=== PATIENT | female | born 1990 | race Caucasian/White ===

== ENCOUNTER 2017-02-22 01:00 | Emergency (ER) | payer SELFPAY ==
[~2017-02-22] VITALS: Ht 157.5 cm; Wt 125.6 kg
[~2017-02-22 01:00] MED LIST: ALBU90OI6; ASPI325 PO; ASPI81CH PO; ASPI81EC PO; Aspir-Low81 MG PO; CEPH500 PO; CIPR500 PO; CIPRO500 MG PO; CLOBETTC TP; Cipro500 MG PO; DIAZ5 PO; DIPATR PO; FERR325; HYDACE10B PO; HYDACE5 PO; HYDACE5325 PO; IBUP800 PO; IRON 100 PLUS1 EACH PO; IRON18 MG PO; LEVFLO500 PO; METF500 PO; Naprosyn500 MG PO; Norco 5-325 Ta1 EACH PO; PHENA200 PO; PROC5 PO; PRODEXEL PO; PROM25 PO; Percocet 5-3251 EACH PO; Prednisone20 MG PO; Ultram50 MG PO; Zofran Odt4 MG SL; Zofran4 MG PO; [UNRECOGNIZED DRUG - REMARK]
[2017-02-22 01:36] LABS: BASOPHILS ABSOLUTE AUTO 0.02 K/mm3 (0.00-0.23); BASOPHILS PERCENT AUTO 0 % (0-2); EOSINOPHILS ABSOLUTE AUTO 0.08 K/mm3 (0.00-0.68); EOSINOPHILS PERCENT AUTO 1 % (0-6); Hematocrit 33.6 % (33.0-51.0); Hemoglobin 9.4 g/dL (11.5-16.0); IMMATURE GRAN ABSOLUTE AUTO 0.04 K/mm3 (0.00-0.10); IMMATURE GRAN PERCENT AUTO 0 % (0-1); LYMPHOCYTES ABSOLUTE AUTO 1.13 K/mm3 (0.84-5.20); LYMPHOCYTES PERCENT AUTO 13 % (21-46); MONOCYTES ABSOLUTE AUTO 0.51 K/mm3 (0.16-1.47); MONOCYTES PERCENT AUTO 6 % (4-13); Mean Corpuscular HGB 19.1 pg (26.0-34.0); Mean Corpuscular Volume 68 fL (80-100); Mean Platelet Volume 9.4 fL (9.1-12.4); NEUTROPHILS ABSOLUTE AUTO 7.14 K/mm3 (1.96-9.15); NEUTROPHILS PERCENT AUTO 80 % (41-73); Platelet Count 297 K/mm3 (150-400); RDW Coefficient Variation 17.2 % (11.7-14.2); Red Blood Cell Count 4.92 M/mm3 (3.80-5.20); White Blood Cell Count 8.92 K/mm3 (4.00-11.30)
[2017-02-22 01:52] LABS: Alanine Aminotransfer (ALT/SGP 27 U/L (12-78); Albumin, Blood 3.5 g/dL (3.4-5.0); Albumin/Globulin Ratio 0.9 (0.8-1.8); Alk Phos 38 U/L (50-136); Anion Gap 8 mmol/L (6-16); Aspartate Aminotrans (AST/SGOT 22 U/L (12-37); Bilirubin, Total 0.6 mg/dL (0.1-1.0); Blood Urea Nitrogen 22 mg/dL (8-24); Bun/Creatinine Ratio 31.4 (12.0-20.0); CO2, Blood 25 mmol/L (21-32); Calcium, Blood 8.2 mg/dL (8.5-10.1); Chloride, Blood 108 mmol/L (98-108); Globulin, Blood 4.1 g/dL (2.2-4.0); Glomerular Filtration Rate >60 (60-); Glucose, Blood 89 mg/dL (70-99); Potassium, Blood 3.8 mmol/L (3.5-5.5); Sodium, Blood 141 mmol/L (136-145); Total Protein, Blood 7.6 g/dL (6.4-8.2)
[2017-02-22] MEDS ORDERED: Ultram50 MG PO (03:30)
[2017-02-22] MEDS ORDERED: Zofran Odt8 MG SL (03:30)
[2017-02-22] MEDS ORDERED: Protonix40 MG PO (03:30)
[2018-01-18] MEDS ORDERED: IBUP800 PO (23:11)
[2018-01-19] MEDS ORDERED: Keflex500 MG PO (00:05)
== END 2017-02-22 03:40 | disposition home or self-care (01) ==
LOC: ER 01:00
PROVIDERS: Emergency Medicine
DX: K29.00 Acute gastritis without bleeding (principal); Z88.0 Allergy status to penicillin
CPT/HCPCS: 76705; 80053; 83690; 85025; 96374; 96375; 99284; J0780; J1170; J2405; J7030

== ENCOUNTER 2019-07-02 17:47 | Emergency (ER) | payer OTHER ==
[~2019-07-02] VITALS: Ht 157.5 cm; Wt 127.0 kg
[~2019-07-02 17:47] MED LIST changes: +Keflex500 MG PO; +Protonix40 MG PO; +Tamiflu75 MG PO; +Zofran Odt8 MG SL
[2019-07-02] MEDS ORDERED: CYCL10 PO (18:39)
== END 2019-07-02 18:54 | disposition home or self-care (01) ==
LOC: ER 17:47
DX: S16.1XXA Strain of muscle, fascia and tendon at neck level, initial encounter (principal); Z88.0 Allergy status to penicillin; V49.49XA Driver injured in collision with other motor vehicles in traffic accident, initial encounter
CPT/HCPCS: 72040; 99284-25

== ENCOUNTER 2020-02-13 00:52 | Emergency (ER) | payer SELFPAY ==
[~2020-02-13] VITALS: Ht 157.5 cm; Wt 127.0 kg
[~2020-02-13 00:52] MED LIST changes: +CYCL10 PO
[2020-02-13 02:23] LABS: BASOPHILS ABSOLUTE AUTO 0.03 K/mm3 (0.00-0.23); BASOPHILS PERCENT AUTO 0 % (0-2); EOSINOPHILS ABSOLUTE AUTO 0.07 K/mm3 (0.00-0.68); EOSINOPHILS PERCENT AUTO 1 % (0-6); Hematocrit 25.5 % (33.0-51.0); Hemoglobin 6.4 g/dL (11.5-16.0); IMMATURE GRAN ABSOLUTE AUTO 0.08 K/mm3 (0.00-0.10); IMMATURE GRAN PERCENT AUTO 1 % (0-1); LYMPHOCYTES ABSOLUTE AUTO 2.42 K/mm3 (0.84-5.20); LYMPHOCYTES PERCENT AUTO 25 % (21-46); MONOCYTES ABSOLUTE AUTO 0.54 K/mm3 (0.16-1.47); MONOCYTES PERCENT AUTO 6 % (4-13); Mean Corpuscular HGB 16.4 pg (26.0-34.0); Mean Corpuscular HGB Conc 25.1 g/dL (31.5-36.5); Mean Corpuscular Volume 65 fL (80-100); Mean Platelet Volume 9.7 fL (9.1-12.4); NEUTROPHILS ABSOLUTE AUTO 6.46 K/mm3 (1.96-9.15); NEUTROPHILS PERCENT AUTO 67 % (41-73); NRBC ABSOLUTE 0.03 K/mm3 (0.00-0.02); NRBC Auto 0.3 /100 WBC (0.0-0.2); Platelet Count 303 K/mm3 (150-400); RDW Coefficient Variation 19.3 % (11.7-14.2); RDW Standard Deviation 44.3 fL (35.1-46.3)
[2020-02-13 02:41] LABS: Alanine Aminotransfer (ALT/SGP 29 U/L (12-78); Albumin, Blood 3.2 g/dL (3.4-5.0); Albumin/Globulin Ratio 0.9 (0.8-1.8); Alk Phos 39 U/L (50-136); Anion Gap 4 mmol/L (6-16); Aspartate Aminotrans (AST/SGOT 20 U/L (12-37); Bilirubin, Total 0.4 mg/dL (0.1-1.0); Blood Urea Nitrogen 14 mg/dL (8-24); Bun/Creatinine Ratio 20.2 (12.0-20.0); CO2, Blood 27 mmol/L (21-32); Calcium, Blood 8.3 mg/dL (8.5-10.1); Chloride, Blood 110 mmol/L (98-108); Creatinine, Blood 0.69 mg/dL (0.40-1.00); Globulin, Blood 3.5 g/dL (2.2-4.0); Glomerular Filtration Rate >60 (60-); Glucose, Blood 102 mg/dL (70-99); Potassium, Blood 3.9 mmol/L (3.5-5.5); Sodium, Blood 141 mmol/L (136-145); Total Protein, Blood 6.7 g/dL (6.4-8.2)
[2020-02-13] MEDS ORDERED: FURO20 PO (04:51)
[2020-02-13] MEDS ORDERED: POTCHL20ER PO (04:51)
== END 2020-02-13 05:04 | disposition home or self-care (01) ==
LOC: ER 00:52
PROVIDERS: Emergency Medicine
DX: R60.0 Localized edema (principal); D64.9 Anemia, unspecified; Z88.0 Allergy status to penicillin; Z86.718 Personal history of other venous thrombosis and embolism
CPT/HCPCS: 36415; 80053; 85025; 85379; 93970; 99284-25

== ENCOUNTER 2020-11-13 04:24 | Emergency (ER) | payer OTHER ==
[~2020-11-13] VITALS: Ht 157.5 cm; Wt 136.1 kg
[~2020-11-13 04:24] MED LIST changes: +FURO20 PO; +POTCHL20ER PO
[2020-11-13 04:44] LABS: Source, Urine Clean Catch
[2020-11-13 04:49] LABS: Bilirubin, Urine Neg (Neg); Blood, Urine 5+ (Neg); Glucose Qualitative, Urine Neg (Neg); Ketones, Urine 1+ (Neg); Leukocyte Esterase, Urine 2+ (Neg); Nitrite, Urine Neg (Neg); Protein, Urine 4+ (Neg); Specific Gravity, Urine 1.015 (1.003-1.022); Urobilinogen, Urine NORM (Normal); pH, Urine 6.5 (5.0-8.0)
[2020-11-13 04:58] LABS: Color, Urine Red (P-Yellow)
[2020-11-13 04:59] LABS: Appearance, Urine Cloudy (Clear)
[2020-11-13 05:04] LABS: Amorphous Light (0-Heavy); Bacteria Mod /hpf; Red Blood Cells, Urine TNTC /hpf (0-2); Squamous Epithelial Cells Few /hpf (Few); White Blood Cells, Urine 25-50 /hpf (0-5)
[2020-11-13 05:48] LABS: BASOPHILS ABSOLUTE AUTO 0.03 K/mm3 (0.00-0.23); BASOPHILS PERCENT AUTO 0 % (0-2); EOSINOPHILS ABSOLUTE AUTO 0.04 K/mm3 (0.00-0.68); EOSINOPHILS PERCENT AUTO 0 % (0-6); Hematocrit 27.4 % (33.0-51.0); Hemoglobin 7.6 g/dL (11.5-16.0); IMMATURE GRAN ABSOLUTE AUTO 0.07 K/mm3 (0.00-0.10); IMMATURE GRAN PERCENT AUTO 1 % (0-1); LYMPHOCYTES PERCENT AUTO 18 % (21-46); MONOCYTES PERCENT AUTO 7 % (4-13); Mean Corpuscular HGB 18.2 pg (26.0-34.0); Mean Corpuscular HGB Conc 27.7 g/dL (31.5-36.5); Mean Corpuscular Volume 66 fL (80-100); Mean Platelet Volume 9.6 fL (9.1-12.4); NEUTROPHILS ABSOLUTE AUTO 8.46 K/mm3 (1.96-9.15); NEUTROPHILS PERCENT AUTO 74 % (41-73); Platelet Count 332 K/mm3 (150-400); RDW Coefficient Variation 19.5 % (11.7-14.2); RDW Standard Deviation 44.9 fL (35.1-46.3); Red Blood Cell Count 4.18 M/mm3 (3.80-5.20)
[2020-11-13] MEDS ORDERED: CEPH500 PO ×2 (06:06→06:07)
[2020-11-13] MEDS ORDERED: Norco 5-325 Ta1 EACH PO (06:07)
[2020-11-13 06:14] LABS: Alanine Aminotransfer (ALT/SGP 28 U/L (12-78); Albumin, Blood 3.2 g/dL (3.4-5.0); Albumin/Globulin Ratio 0.8 (0.8-1.8); Alk Phos 37 U/L (50-136); Anion Gap 6 mmol/L (6-16); Aspartate Aminotrans (AST/SGOT 17 U/L (12-37); Bilirubin, Total 0.5 mg/dL (0.1-1.0); Blood Urea Nitrogen 13 mg/dL (8-24); Bun/Creatinine Ratio 14.9 (12.0-20.0); CO2, Blood 25 mmol/L (21-32); Calcium, Blood 8.4 mg/dL (8.5-10.1); Chloride, Blood 109 mmol/L (98-108); Creatinine, Blood 0.88 mg/dL (0.40-1.00); Globulin, Blood 4.2 g/dL (2.2-4.0); Glomerular Filtration Rate >60 (60-); Glucose, Blood 117 mg/dL (70-99); Potassium, Blood 3.9 mmol/L (3.5-5.5); Sodium, Blood 140 mmol/L (136-145); Total Protein, Blood 7.4 g/dL (6.4-8.2)
== END 2020-11-13 07:15 | disposition home or self-care (01) ==
LOC: ER 04:24
PROVIDERS: Emergency Medicine
DX: N12 Tubulo-interstitial nephritis, not specified as acute or chronic (principal); Z88.0 Allergy status to penicillin; Z86.711 Personal history of pulmonary embolism; Z86.718 Personal history of other venous thrombosis and embolism
CPT/HCPCS: 36415; 74176; 80053; 81001; 81025; 85025; 87077; 87086; 87186; 96365; 96375; 99283-25; A9270; J0696; J1885; J2405; J7030

== ENCOUNTER 2023-10-27 07:44 | Emergency (ER) | payer OTHER ==
[~2023-10-27] VITALS: Ht 157.5 cm; Wt 149.7 kg
[~2023-10-27 07:44] MED LIST changes: +NITR100CA PO
[2023-10-27] MEDS ORDERED: FURO20 PO (08:06)
[2023-10-27] MEDS ORDERED: CEPH500 PO (09:19)
[2023-10-27 09:48] VITALS: BP 132/77
== END 2023-10-27 09:50 | disposition home or self-care (01) ==
LOC: ER 07:44
DX: L03.114 Cellulitis of left upper limb (principal); Z79.899 Other long term (current) drug therapy; Z88.0 Allergy status to penicillin
CPT/HCPCS: 93971

== ENCOUNTER 2024-10-11 07:56 | Day surgery (SDC) | payer OTHER ==
[2024-10-11 08:00] VITALS: BP 147/72
[2024-10-11] MEDS ORDERED: Sod Ferric Gluc Complx/Sucrose 125 MG in NS 100 ML IV SCH (09:00)
[2024-10-11] MEDS ORDERED: FERSU300 PO (11:51)
[2024-10-11] MEDS ORDERED: ALBU90OI INH (11:52)
[2024-10-11] MEDS ORDERED: FLUTICASONE-SA1 EAC8 INH (11:52)
[2024-10-11] MEDS ORDERED: Celexa10 MG PO (11:53)
[2024-10-11] MEDS ORDERED: Adipex-P37.5 M1 PO (11:53)
[2024-10-11] MEDS ORDERED: Inderal 20 mg T20 MG PO (11:54)
[2024-10-11] MEDS ORDERED: TOPIRAMATE ER50 M1 PO (11:54)
== END 2024-10-11 09:27 | disposition home or self-care (01) ==
LOC: ATC 07:56
DX: D50.8 Other iron deficiency anemias (principal); F33.1 Major depressive disorder, recurrent, moderate; F41.1 Generalized anxiety disorder; Q87.2 Congenital malformation syndromes predominantly involving limbs; G47.10 Hypersomnia, unspecified; E28.2 Polycystic ovarian syndrome; J45.42 Moderate persistent asthma with status asthmaticus; E66.01 Morbid (severe) obesity due to excess calories; Z68.44 Body mass index [BMI] 60.0-69.9, adult; Z79.899 Other long term (current) drug therapy
CPT/HCPCS: 96365; J2916

== ENCOUNTER 2024-10-17 00:53 | Day surgery (SDC) | payer OTHER ==
[~2024-10-17 00:53] MED LIST changes: +ALBU90OI INH; +Adipex-P37.5 M1 PO; +Celexa10 MG PO; +FERSU300 PO; +FLUTICASONE-SA1 EAC8 INH; +Inderal 20 mg T20 MG PO; +TOPIRAMATE ER50 M1 PO
[2024-10-17] MEDS ORDERED: Sod Ferric Gluc Complx/Sucrose 125 MG in NS 100 ML IV SCH (06:00)
[2024-10-17 10:09] VITALS: BP 133/66
== END 2024-10-17 11:12 | disposition home or self-care (01) ==
LOC: ATC 00:53
DX: D50.8 Other iron deficiency anemias (principal); F33.1 Major depressive disorder, recurrent, moderate; F41.1 Generalized anxiety disorder; Q87.2 Congenital malformation syndromes predominantly involving limbs; G47.10 Hypersomnia, unspecified; E28.2 Polycystic ovarian syndrome; J45.40 Moderate persistent asthma, uncomplicated; E66.01 Morbid (severe) obesity due to excess calories; Z68.44 Body mass index [BMI] 60.0-69.9, adult; Z79.899 Other long term (current) drug therapy
CPT/HCPCS: 96365; J2916

== ENCOUNTER 2024-10-24 02:02 | Day surgery (SDC) | payer OTHER ==
[~2024-10-24 02:02] MED LIST changes: +Sod Ferric Gluc Complx/Sucrose 125 MG in NS 100 ML IV SCH
[2024-10-24 09:05] VITALS: BP 153/83
== END 2024-10-24 10:15 | disposition home or self-care (01) ==
LOC: ATC 02:02
DX: D50.8 Other iron deficiency anemias (principal); E66.01 Morbid (severe) obesity due to excess calories; J45.40 Moderate persistent asthma, uncomplicated; Z79.899 Other long term (current) drug therapy
CPT/HCPCS: 96365; J2916

== ENCOUNTER 2024-10-31 02:23 | Day surgery (SDC) | payer OTHER ==
[~2024-10-31 02:23] MED LIST changes: -Sod Ferric Gluc Complx/Sucrose 125 MG in NS 100 ML IV SCH
[2024-10-31] MEDS ORDERED: Sod Ferric Gluc Complx/Sucrose 125 MG in NS 100 ML IV SCH (09:00)
[2024-10-31 09:11] VITALS: BP 141/53
== END 2024-10-31 10:25 | disposition home or self-care (01) ==
LOC: ATC 02:23
DX: D50.8 Other iron deficiency anemias (principal); F33.1 Major depressive disorder, recurrent, moderate; F41.1 Generalized anxiety disorder; Q87.2 Congenital malformation syndromes predominantly involving limbs; G47.10 Hypersomnia, unspecified; E28.2 Polycystic ovarian syndrome; J45.40 Moderate persistent asthma, uncomplicated; E66.01 Morbid (severe) obesity due to excess calories; Z68.44 Body mass index [BMI] 60.0-69.9, adult
CPT/HCPCS: 96365; J2916

== ENCOUNTER 2024-11-07 02:48 | Day surgery (SDC) | payer OTHER ==
[~2024-11-07 02:48] MED LIST changes: +Sod Ferric Gluc Complx/Sucrose 125 MG in NS 100 ML IV SCH
[2024-11-07 09:13] VITALS: BP 151/96
== END 2024-11-07 10:36 | disposition home or self-care (01) ==
LOC: ATC 02:48
DX: D50.8 Other iron deficiency anemias (principal); F33.1 Major depressive disorder, recurrent, moderate; F41.1 Generalized anxiety disorder; Q87.2 Congenital malformation syndromes predominantly involving limbs; G47.10 Hypersomnia, unspecified; J45.40 Moderate persistent asthma, uncomplicated; E66.01 Morbid (severe) obesity due to excess calories; Z68.44 Body mass index [BMI] 60.0-69.9, adult; Z79.899 Other long term (current) drug therapy
CPT/HCPCS: 96365; J2916

== ENCOUNTER → 2024-12-26 | Outpatient (CLI) | payer OTHER ==
[~2024-12-26] MED LIST changes: -Sod Ferric Gluc Complx/Sucrose 125 MG in NS 100 ML IV SCH
== END ==
LOC: LAB SHORT 14:47 → LAB 14:47
DX: K21.9 Gastro-esophageal reflux disease without esophagitis (principal)
CPT/HCPCS: 87338

== ENCOUNTER → 2025-01-05 | Outpatient (CLI) | payer OTHER | LOC: LAB 13:16 | DX: R30.0 Dysuria (principal) ==